=== PATIENT | female | born 1960 | race Caucasian/White ===

== ENCOUNTER 2019-10-03 19:18 | Emergency (ER) | payer BC, MEDICARE ==
[2019-10-03] MEDS ORDERED: ONDANSETRON 4 MG TAB.RAPDIS PO ONE (19:26)
--- NOTE | 2019-10-03 19:33 | ER Document Report ---
ED Medical Screen (RME) - General Stated Complaint: BLOOD PRESSURE ISSUES Time Seen by Provider: 10/03/19 19:23 Primary Care Provider: TYRELL SEPULVEDA FNP [Primary Care Provider] - Follow up as needed - [facility] Notes: 10/03/19 19:26 59-year-old female presents emergency room for complaints of sudden onset left- sided chest pain with severe headache and nausea that started after patient received her CT head results today. patient states that she fell onto concrete on August 28, she has had a lingering headache and blurred vision, she saw the regional extension service specialist on September 27, he advised her to see her primary care provider for possible brain concussion, she did have a CT performed which did show some change in density in the frontal lobe, which was resulted today. Patient is denies any head trauma since that time. Denies being on any blood thinners. Patient denies any radiation of chest pain. Reports chest pain is sharp and constant for the last 2 hours. automatic blood pressure was 218/118 however manual blood pressure was 170/100s. Denies any fevers or chills. Denies any abdominal pain, numbness or tingling down upper or lower bilateral extremities. I have greeted and performed a rapid initial assessment of this patient. A comprehensive ED assessment and evaluation of the patient, analysis of test results and completion of the medical decision making process will be conducted by additional ED providers. PHYSICAL EXAMINATION: GENERAL: Well-appearing, well-nourished and in no acute distress. HEAD: Atraumatic, normocephalic. EYES: Pupils equal round extraocular movements intact, conjunctiva are normal. NECK: Normal range of motion CV: s1, s2 regular LUNGS: No respiratory distress Musculoskeletal: Normal range of motion NEUROLOGICAL: Normal speech, normal gait. PERRLA, EOMI. Full motor and sensory function throughout. Adjunct Latin Professor + 2 equal bilaterally in BUE. Tongue midline. No pronator drift. No ataxia. Neck with APROM. Raises eyebrows. Strength is 5 out of 5 in bilateral upper and lower extremities equally.Speaks in full sentences. SKIN: Warm, Dry, normal turgor, no rashes or lesions noted. Doctor's Discharge - Discharge Referrals: TYRELL SEPULVEDA FNP [Primary Care Provider] - Follow up as needed
--- NOTE | 2019-10-03 19:56 | RADIOLOGY REPORT (SQ) ---
EXAM DESCRIPTION: CHEST SINGLE VIEW COMPLETED DATE/TIME: 10/03/2019 7:46 pm REASON FOR STUDY: chest pain COMPARISON: 03/06/2007 EXAM PARAMETERS: NUMBER OF VIEWS: One view. TECHNIQUE: Single frontal radiographic view of the chest acquired. RADIATION DOSE: NA LIMITATIONS: None. FINDINGS: LUNGS AND PLEURA: No opacities, masses or pneumothorax. No pleural effusion. MEDIASTINUM AND HILAR STRUCTURES: No masses. Contour normal. HEART AND VASCULAR STRUCTURES: Heart normal in size. Normal vasculature. BONES: No acute findings. HARDWARE: None in the chest. OTHER: No other significant finding. IMPRESSION: NO ACUTE RADIOGRAPHIC FINDING IN THE CHEST. TECHNICAL DOCUMENTATION: JOB ID: [id number] [employer]- All Rights Reserved Reading location - IP/workstation name: [email or web address]
[2019-10-03 20:33] LABS: ABSOLUTE BASOPHILS # (AUTO) 0.1 10^3/uL (0.0-0.2); ABSOLUTE EOSINOPHILS # (AUTO) 0.2 10^3/uL (0.0-0.6); ABSOLUTE LYMPHOCYTES (AUTO) 2.5 10^3/uL (0.5-4.7); ABSOLUTE MONOCYTES (AUTO) 0.6 10^3/uL (0.1-1.4); ABSOLUTE NEUT (AUTO) 9.3 10^3/uL (1.7-8.2); BASOPHILS % (AUTO) 0.6 % (0-2); EOSINOPHILS % (AUTO) 1.9 % (0-6); HEMATOCRIT 44.7 % (36.0-47.0); HEMOGLOBIN 15.3 g/dL (12.0-15.5); LYMPHOCYTES % (AUTO) 19.7 % (13-45); MEAN CORPUSCULAR HEMOGLOBIN 30.5 pg (27.0-33.4); MEAN CORPUSCULAR HGB CONC 34.3 g/dL (32.0-36.0); MEAN CORPUSCULAR VOLUME 89 fl (80-97); PLATELET COUNT 355 10^3/uL (150-450); RED BLOOD COUNT 5.02 10^6/uL (3.72-5.28); RED CELL DISTRIBUTION WIDTH 12.9 % (11.5-14.0); SEGMENTED NEUTROPHILS % (AUTO) 72.8 % (42-78); TOTAL CELLS COUNTED % (AUTO) 100 %; WHITE BLOOD COUNT 12.8 10^3/uL (4.0-10.5)
[2019-10-03 20:41] LABS: APPEARANCE,URINE SLIGHTLY-CLOUDY; BILIRUBIN,URINE NEGATIVE (NEGATIVE); COLOR,URINE YELLOW; GLUCOSE, URINE >=500 mg/dL (NEGATIVE); KETONES,URINE TRACE mg/dL (NEGATIVE); LEUKOCYTE ESTERASE,URINE TRACE (NEGATIVE); NITRITE,URINE NEGATIVE (NEGATIVE); PROTEIN,URINE 30 mg/dL (NEGATIVE); URINE SPECIFIC GRAVITY 1.033; UROBILINOGEN,URINE NEGATIVE mg/dL (<2.0)
[2019-10-03 20:48] LABS: ALKALINE PHOSPHATASE 106 U/L (38-126); ANION GAP 11 (5-19); ASPARTATE AMINO TRANSFERASE 28 U/L (14-36); BILIRUBIN,DIRECT 0.2 mg/dL (0.0-0.4); BILIRUBIN,TOTAL 0.5 mg/dL (0.2-1.3); BLOOD UREA NITROGEN 16 mg/dL (7-20); CALCIUM 9.3 mg/dL (8.4-10.2); CARBON DIOXIDE 22 mmol/L (22-30); CHLORIDE 108 mmol/L (98-107); GLUCOSE 82 mg/dL (75-110); POTASSIUM 3.5 mmol/L (3.6-5.0)
--- NOTE | 2019-10-03 22:00 | EKG REPORT ---
SEVERITY:- ABNORMAL ECG - SINUS RHYTHM LEFT VENTRICULAR HYPERTROPHY BORDERLINE T ABNORMALITIES, INFERIOR LEADS : Confirmed by: Tawanda Block 03-Oct-2019 22:00:00
--- NOTE | 2019-10-04 00:46 | ER Document Report ---
ED General - General Chief Complaint: Chest Pain Stated Complaint: BLOOD PRESSURE ISSUES Time Seen by Provider: 10/03/19 19:23 Primary Care Provider: TYRELL SEPULVEDA FNP [Primary Care Provider] - Follow up as needed TRAVEL OUTSIDE OF THE [place] IN LAST 30 DAYS: No - Related Data Allergies/Adverse Reactions: No Known Allergies Allergy (Unverified 10/03/19 20:29) Past Medical History - Social History Smoking Status: Never Smoker Frequency of alcohol use: None Drug Abuse: None Family History: Reviewed & Not Pertinent Patient has suicidal ideation: No Patient has homicidal ideation: No Physical Exam - Vital signs Vitals: Pulse Resp BP Pulse Ox 73 18 214/82 H 100 10/03/19 19:27 10/03/19 19:27 10/03/19 19:27 10/03/19 19:27 - Notes Notes: Presents emergency department complaining of substernal chest pain that started earlier today. Pain was nonradiating and lasted for about 30 minutes. She describes as a tightness. They have any shortness of breath or palpitations with this. No nausea vomiting or diaphoresis. She says she was extremely anxious at the time because her head and neck was worse and was concerned about the CT report. She does report history of anxiety in the past and felt this was the same. Is any previous history of coronary artery disease. She had a nuclear stress test to 3 months ago that was normal. Patient also reports that she has been having a frontal headache for over a month since a fall on August 28. She did go to the hospital at the time. She had no loss of consciousness but since the time she has persistent headaches have not fully been relieved Excedrin. Some blurry vision with this. Some nausea occasional vomiting most with movement and some dizziness. She describes this as a spinning sensation worse with movement and better with rest. Appetite is been decreased but she is tolerating liquids well. She has had no fevers with this. She was seen by pest control worker who adjusted her lenses. Also seen by family doctor last week who did a CT on her on Monday called her today to advise her that she has a questionable increased density in the left frontal lobe that they feel is related to trauma and he recommended that she follow-up with him [address] reason today was because of the chest pain and elevated blood pressure. She has been compliant with her medications but has not been checking her blood pressure regularly. Did not have her medicines today headache is unchanged from previous family doctor offered her narcotics Ultram but she did not want to take them Past medical history sniffing for hypertension and diabetes. Also has fibromyalgia has no history of coronary disease or elevated cholesterol. Social history does not smoke or drink at all Medications been reviewed she says she rarely takes Valium Review of systems pertinent positives and negatives in HPI otherwise all the systems were reviewed and acutely negative PHYSICIAN EXAM -vital signs are noted triage note and note from triage reviewed GENERAL: Well-appearing, well-nourished and in __no acute distress at this time____ HEAD: Atraumatic, normocephalic. EYES: Pupils equal round and reactive to light, extraocular movements intact, there is no nystagmus or photophobia sclera anicteric, conjunctiva are normal. ENT: nares patent, oropharynx clear without exudates. Moist mucous membranes. Face is nontender NECK: supple without lymphadenopathy she has some minimal tenderness in the midline of the neck at C7-T1 and trapezius muscles. She has no pain with flexion extension of the neck however LUNGS: Breath sounds clear to auscultation bilaterally and equal. No wheezes rales or rhonchi. HEART: Regular rate and rhythm without murmurs ABDOMEN: Soft, nontender, normoactive bowel sounds. EXTREMITIES: No deformity, no edema. NEUROLOGICAL: Alert and oriented x4. Cranial nerves he has symmetrical smile facies and shoulder shrug. His motor strength is 5/5 bilaterally in the upper and lower extremities. Toes downgoing. Sensation is intact to light touch is a negative Romberg and normal gait he does have some vertiginous symptoms with a rapid movement of her head PSYCH: Normal mood, normal affect. SKIN: Warm, Dry, normal turgor, no rashes or lesions noted. BACK-nontender in the midline Differential diagnosis postconcussive syndrome intracranial hemorrhage tumor Course - Re-evaluation Re-evalutation: 10/04/19 00:44 ED patient is remained stable nonfocal neurologically and blood pressure is improved at 199/100. I did contact radiology did not able to access the CT r eport Medical decision making patient presents with symptoms consistent with a postconcussive syndrome. Able to access the CT unclear as to the findings. Seems unlikely that she would have persistent CT findings from over a month after. Talk to the patient about having a repeat CT done here with contrast as well as a CT of her neck however she says her main reason for coming in was because of the elevated blood pressure she feels better would like to go home. I think is reasonable since her family doctor had a report and felt that she could follow-up in a week. No neurological deficits. Plan at this point will discharge home with a prescription for Fioricet and Antivert. Ice to rest and avoid rapid movements. She needs to increase her losartan to twice a day follow-up with her family doctor next week or she will need an MRI of her head and possibly referral to neurology At this time there is no indication for admission. I have discussed the findings with patient/family with return precautions and follow-up recommendations. Verbal discharge instructions given at the bedside and opportunity for questions given. Medication warnings were given if indicated. Patient is in agreement with this plan and has verbalized understanding of return precautions and the need for primary care follow-up as directed.. - Vital Signs Vital signs: Temp Pulse Resp BP Pulse Ox 73 29 H 186/149 H 100 10/03/19 19:27 10/03/19 23:35 10/03/19 23:35 10/03/19 23:35 - Laboratory Result Diagrams: 10/03/19 20:15 10/03/19 20:15 Laboratory results interpreted by me: 10/03/19 10/03/19 10/03/19 20:15 20:15 20:24 WBC 12.8 H Absolute Neuts (auto) 9.3 H Potassium 3.5 L Chloride 108 H Urine Protein 30 H Urine Glucose (UA) >=500 H Urine Ketones TRACE H Ur Leukocyte Esterase TRACE H - Diagnostic Test Radiology reviewed: Reports reviewed - EKG Interpretation by Me Additional EKG results interpreted by me: 10/04/19 00:44 EKG read by me shows a normal sinus rhythm with some minimal nonspecific ST wave changes with some flattening of the T waves no old EKGs for comparison Discharge - Discharge Clinical Impression: Postconcussive syndrome, Vertigo High blood pressure Qualifiers: Hypertension type: unspecified Qualified Code(s): I10 - Essential (primary) hypertension Disposition: HOME, SELF-CARE Instructions: Chest Pain of Unclear Cause ([facility]) Additional Instructions: Post-Concussion Syndrome Post-concussion syndrome often follows a mild head injury. Dizziness, mild nausea, mild headache, trouble concentrating, and a general sense of "not being right" may persist for a week or two. This is a frequent complication of concussion. However, if the symptoms worsen, or new symptoms develop, you sh ould be re-examined by the physician. There is no specific cure for post-concussion syndrome. You can take mild pain medication such as ibuprofen or acetaminophen. While you should not drive if you are dizzy, you can get back to your regular activities as quickly as the symptoms will allow. And while vigorous exercise may worsen the headache, mild physical activity often is helpful. Sitting and thinking about your symptoms will worsen them. If difficulties continue, you may need referral for special therapy to help you regain full mental function. Call the physician if you are worsening, or if symptoms are still present in one week. Report any new symptoms immediately. Take your medications tonight. Taking the losartan twice a day Avoid rapid movement or bending Pressure 1 your blood pressure was elevated today needs to be rechecked again in 1 to 2 weeks to determine if need to be on medication or have your medications adjusted. Untreated hypertension can cause heart attack stroke and kidney failure Follow-up with your family doctor in 2 to 3 days as you will need an MRI of your head do not take the Valium with the Fioricet, do not take Excedrin with the Sweta icet The pain medications may cause drowsiness. Be careful if you are using crutches. Do not drive or operate machinery. Do not take Tylenol with the pain medication Prescriptions: Meclizine HCl [Antivert 25 mg Tablet] 25 mg PO TID #20 tablet Butalb/Acetaminophen/Caffeine [Fioricet (50-325-40 mg) Tablet] 1 tab PO ASDIR PRN #15 tab PRN Reason: Ondansetron HCl [Zofran 4 mg Tablet] 1 tab PO Q4H PRN #15 tablet PRN Reason: Forms: Elevated Blood Pressure, Return to Work Referrals: TYRELL SEPULVEDA FNP [Primary Care Provider] - Follow up as needed
[2019-10-04] MEDS ORDERED: BUTALB/ACETAMINOPHEN/CAFFEINE 1 TAB EACH PO ONE (00:52)
[2019-10-04] MEDS ORDERED: ONDANSETRON 4 MG TAB.RAPDIS PO ONE (00:52)
[2019-10-04 00:56] VITALS: BP 177/98
== END 2019-10-04 01:05 | disposition home or self-care (01) ==
LOC: ER 19:18
DX: F07.81 Postconcussional syndrome (principal); R42 Dizziness and giddiness; I10 Essential (primary) hypertension; R07.9 Chest pain, unspecified
CPT/HCPCS: 93005; 99285; 36415; 85025; 80053; 81001; 84484; 71045; 93010; S0119